=== PATIENT | female | born 2000 | race Caucasian/White ===

== ENCOUNTER 2021-09-06 13:37 | Emergency (ER) | payer MEDICAID ==
[2021-09-06 13:48] VITALS: BP 107/71
[2021-09-06 14:37] LABS: Bacteria,Urine 1+ /HPF (Negative); Bilirubin,Urine NEG (Negative); Blood,Urine NEG (Negative); Color,Urine Yellow (Yellow); Hyaline Casts,Urine 1 /LPF; Mucus,Urine 2+ /HPF; Protein,Urine <15 mg/dL mg/dL (Negative); Urobilinogen,Urine < 2.0 mg/dL (<2.0)
[2021-09-06 15:02] LABS: Basophils # (Auto) 0.1 K/mm3 (0.0-0.1); Basophils % (Auto) 1.3 % (0.0-1.8); Eosinophils % (Auto) 0.4 % (0.0-4.3); Hematocrit 39.5 % (30.3-42.9); Lymphocytes # (Auto) 2.1 K/mm3 (1.2-5.4); Lymphocytes % (Auto) 43.6 % (13.4-35.0); Mean Corpuscular HGB Conc 33 % (30-34); Mean Corpuscular Volume 85 fl (79-97); Monocytes # (Auto) 0.5 K/mm3 (0.0-0.8); Monocytes % (Auto) 9.8 % (0.0-7.3); Platelet Count 293 K/mm3 (140-440); Red Blood Count 4.64 M/mm3 (3.65-5.03); Red Cell Distribution Width 14.9 % (13.2-15.2)
[2021-09-06 15:07] LABS: Blood Urea Nitrogen 7 mg/dL (7-17); Calcium 9.6 mg/dL (8.4-10.2); Hemolysis Index 18
[2021-09-06 15:15] LABS: BUN/Creatinine Ratio 12
--- NOTE | 2021-09-06 16:02 | Emergency Department Report ---
ED Female HPI - General Chief complaint: Vaginal Bleeding Stated complaint: POSS MISCARRIAGE Time Seen by Provider: 09/06/21 14:02 Source: patient Mode of arrival: Ambulatory Limitations: No Limitations - History of Present Illness Initial comments: Patient is a 21-year-old female that comes to the emergency room with vaginal bleeding after a positive test. She states her last menstrual cycle was the end of May, today she woke up with some vaginal bleeding. This is her first . She has not seen an [facility]. MD Complaint: vaginal bleeding -: Sudden Severity scale (0 -10): 1 Quality: cramping Consistency: intermittent Improves with: none Worsens with: none Are you Now?: Yes Associated Symptoms: denies other symptoms, vaginal bleeding. denies: vaginal discharge, abdominal pain, nausea/vomiting, fever/chills, headaches, loss of appetite, dysuria, hematuria, rash, shortness of breath, syncope, weakness - Related Data Sexually active: Yes : 1 Allergies Allergy/AdvReac Type Severity Reaction Status Date / Time Latex, Natural Rubber Allergy Hives Verified 09/06/21 13:49 ED Review of Systems ROS: Stated complaint: POSS MISCARRIAGE Other details as noted in HPI Comment: All other systems reviewed and negative ED Past Medical Hx - Past Medical History Previous Medical History?: No - Surgical History Past Surgical History?: No - Family History Family history: no significant - Social History Smoking Status: Never Smoker Substance Use Type: Alcohol ED Physical Exam - General Limitations: No Limitations General appearance: alert, in no apparent distress - Head Head exam: Present: atraumatic, normocephalic - Eye Eye exam: Present: normal appearance - ENT ENT exam: Present: mucous membranes moist - Neck Neck exam: Present: normal inspection - Respiratory Respiratory exam: Present: normal lung sounds bilaterally. Absent: respiratory distress - Cardiovascular Cardiovascular Exam: Present: regular rate, normal rhythm. Absent: systolic murmur, diastolic murmur, rubs, gallop - GI/Abdominal GI/Abdominal exam: Present: soft, normal bowel sounds - Extremities Exam Extremities exam: Present: normal inspection - Back Exam Back exam: Present: normal inspection - Neurological Exam Neurological exam: Present: alert, oriented X3 - Psychiatric Psychiatric exam: Present: normal affect, normal mood - Skin Skin exam: Present: warm, dry, intact, normal color. Absent: rash ED Course Vital Signs 09/06/21 13:45 Temperature 98.4 F Pulse Rate 78 Respiratory 18 Rate Blood Pressure 107/71 [Right] O2 Sat by Pulse 100 Oximetry ED Medical Decision Making - Lab Data Result diagrams: 09/06/21 14:22 09/06/21 14:22 - Radiology Data Radiology results: report reviewed, image reviewed SEE REPORT - Medical Decision Making Vital Signs 09/06/21 13:45 Temperature 98.4 F Pulse Rate 78 Respiratory 18 Rate Blood Pressure 107/71 [Right] O2 Sat by Pulse 100 Oximetry Labs 09/06/21 09/06/21 09/06/21 14:22 14:22 14:22 WBC 4.8 RBC 4.64 Hgb 13.0 Hct 39.5 MCV 85 MCH 28 MCHC 33 RDW 14.9 Plt Count 293 Lymph % (Auto) 43.6 H Emanuel % (Auto) 9.8 H Eos % (Auto) 0.4 Baso % (Auto) 1.3 Lymph # (Auto) 2.1 Emanuel # (Auto) 0.5 Eos # (Auto) 0.0 Baso # (Auto) 0.1 Seg Neutrophils % 44.9 Seg Neutrophils # 2.2 Sodium 137 Potassium 4.1 Chloride 102.6 Carbon Dioxide 23 Anion Gap 16 BUN 7 Creatinine 0.6 Estimated GFR > 60 BUN/Creatinine Ratio 12 Glucose 89 Calcium 9.6 HCG, Quant 6871 H Urine Color Urine Turbidity Urine pH Ur Specific Sondheimer Urine Protein Urine Glucose (UA) Urine Ketones Urine Blood Urine Nitrite Urine Bilirubin Urine Urobilinogen Ur Leukocyte Esterase Urine WBC (Auto) Urine RBC (Auto) U Epithel Cells (Auto) Urine Bacteria (Auto) Hyaline Casts Urine Mucus Blood Type Ord Rhogam Gestat Weeks 09/06/21 09/06/21 14:22 Unknown WBC RBC Hgb Hct MCV MCH MCHC RDW Plt Count Lymph % (Auto) Emanuel % (Auto) Eos % (Auto) Baso % (Auto) Lymph # (Auto) Emanuel # (Auto) Eos # (Auto) Baso # (Auto) Seg Neutrophils % Seg Neutrophils # Sodium Potassium Chloride Carbon Dioxide Anion Gap BUN Creatinine Estimated GFR BUN/Creatinine Ratio Glucose Calcium HCG, Quant Urine Color Yellow Urine Turbidity Clear Urine pH 7.0 Ur Specific Sondheimer 1.024 Urine Protein <15 mg/dl Urine Glucose (UA) Neg Urine Ketones Neg Urine Blood Neg Urine Nitrite Neg Urine Bilirubin Neg Urine Urobilinogen < 2.0 Ur Leukocyte Esterase Mod Urine WBC (Auto) 5.0 Urine RBC (Auto) 1.0 U Epithel Cells (Auto) 4.0 Urine Bacteria (Auto) 1+ Hyaline Casts 1 Urine Mucus 2+ Blood Type O POSITIVE Ord Rhogam Gestat Weeks Rh pos UA noted. Rh+ hCG noted Ultrasound noted Patient educated on the above findings She understands that she needs to see [facility] in 48 hours for repeat imaging and beta quant. Have given her her numbers to take to her [facility] [facility]. Patient being discharged to home with discharge plan of care including diet, activities, medications, pelvic rest, follow-up. She verbalizes understanding. - Differential Diagnosis RO AB Critical care attestation.: If time is entered above; I have spent that time in minutes in the direct care of this critically ill patient, excluding procedure time. ED Disposition Clinical Impression: Threatened miscarriage Disposition: 01 HOME / SELF CARE / HOMELESS Is pt being admited?: No Does the pt Need Aspirin: No Condition: Stable Instructions: Threatened Miscarriage Additional Instructions: TYLENOL FOR PAIN FOLLOW UP WITH OBGYN IN 48HOURS FOR RECHECK REFERRAL BELOW Referrals: YOANNA DOLL MD [Staff Physician] - 3-5 Days Time of Disposition: 16:02
--- NOTE | 2021-09-06 16:18 | Ultrasound Report ---
OB Ultrasound HISTORY: vag bleed in preg. TECHNIQUE: Grayscale and color imaging performed. COMPARISON: None FINDINGS: Uterus measures 9.3 x 5.5 x 6.9 cm and contains an intrauterine gestation with crown-rump l ength measuring 1.1 mm corresponding with an EGA of 7 weeks and 0 days. No cardiac activity is identified. Ovaries are both normal in size with a simple cyst on the left which is most likely functional. No pe lvic free fluid. IMPRESSION: Nonviable intrauterine gestation. Signer Name: Wesley Doyle MD Signed: 09/06/2021 4:14 PM Workstation Name: [id number]
== END 2021-09-06 16:15 | disposition home or self-care (01) ==
LOC: ED 13:37
DX: O20.0 Threatened abortion (principal); Z3A.00 Weeks of gestation of pregnancy not specified
CPT/HCPCS: 36415; 76801; 76817; 80048; 81001; 84702; 85025; 86900; 86901; 99284

== ENCOUNTER 2022-02-06 04:08 | Emergency (ER) | payer MEDICAID ==
[2022-02-06 04:20] VITALS: BP 124/74
[2022-02-06 04:59] LABS: Basophils % (Auto) 0.4 % (0.0-1.8); Eosinophils % (Auto) 0.2 % (0.0-4.3); Hematocrit 39.3 % (30.3-42.9); Hemoglobin 13.1 gm/dl (10.1-14.3); Lymphocytes % (Auto) 26.5 % (13.4-35.0); Mean Corpuscular HGB Conc 33 % (30-34); Mean Corpuscular Volume 84 fl (79-97); Monocytes # (Auto) 0.5 K/mm3 (0.0-0.8); Monocytes % (Auto) 14.7 % (0.0-7.3); Platelet Count 280 K/mm3 (140-440); Red Blood Count 4.68 M/mm3 (3.65-5.03); Red Cell Distribution Width 14.5 % (13.2-15.2)
== END 2022-02-06 05:00 | disposition left against medical advice (07) ==
LOC: ED 04:08
DX: N93.9 Abnormal uterine and vaginal bleeding, unspecified (principal); Z53.21 Procedure and treatment not carried out due to patient leaving prior to being seen by health care provider
CPT/HCPCS: 36415; 84702; 85025